=== PATIENT | female | born 1995 | race African-American/Black ===

== ENCOUNTER 2018-03-09 18:15 | Emergency (ER) | payer OTHER ==
[2018-03-09 18:24] VITALS: BP 119/72; PULSE 98; TEMP 98.1; BMI 55.7
--- NOTE | 2018-03-09 18:35 | PDOC ---
History of Present Illness - General Chief Complaint: Pain, Acute Stated Complaint: PAIN Time Seen by Provider: 03/09/18 18:29 History Source: Patient Exam Limitations: No Limitations - History of Present Illness Initial Comments: This is a 22 YOF with h/o morbid obesity and chronic sleep difficulties who p/w constant sharp 7/10 non-radiating RLQ abdominal pain, nausea, and five episodes NBNB vomiting since this morning. She had [employer] last night. Her last PO intake was about 90 minutes [employer] and was a munguia egg and cheese biscuit, which has not changed her pain level since then. She denies fever, chills, diarrhea, constipation, black/bloody stool, dysuria, strange colors/smells to the urine, vaginal bleeding or discharge, back pain, chest pain, SOB, dizziness, DUDLEY, or any other recent symptoms. She had this pain one time before, about 2 months ago , and was seen in the [facility] ED at that time. She recalls that they did blood and urine tests and found her white blood cell count to be high, but they did not do an ultrasound or any further testing, and sent her home per her report. Past History - Past Medical History Allergies/Adverse Reactions: Allergies Allergy/AdvReac Type Severity Reaction Status Date / Time No Known Allergies Allergy Verified 03/09/18 18:22 Home Medications: Ambulatory Orders NK [No Known Home Medication] 03/09/18 Asthma: Yes CVA: No COPD: No - Immunization History Immunization Up to Date: Yes - Suicide/Smoking/Psychosocial Hx Smoking History: Never smoked Have you smoked in the past 12 months: No Information on smoking cessation initiated: No Hx Alcohol Use: No Drug/Substance Use Hx: No Substance Use Type: None Review of Systems - Review of Systems Able to Perform ROS?: Yes Constitutional: No: Chills, Fever, Unexplained wgt Loss HEENTM: No: Nose Congestion, Throat Pain Respiratory: No: Cough, Shortness of Breath Cardiac (ROS): No: Chest Pain, Palpitations ABD/GI: Yes: Nausea, Vomiting, Other (right upper abdominal pain). No: Constipated, Diarrhea : No: Burning, Dysuria Musculoskeletal: No: Back Pain, Neck Pain Integumentary: No: Bruising, Rash Neurological: No: Headache, Numbness, Tingling, Weakness, Dizziness Endocrine: No: Unexplained Weight Gain, Unexplained Weight Loss *Physical Exam - Vital Signs Last Vital Signs Temp Pulse Resp BP Pulse Ox 98.1 F 98 H 18 119/72 99 03/09/18 18:22 03/09/18 18:22 03/09/18 18:22 03/09/18 18:22 03/09/18 18:22 - Physical Exam General Appearance: Yes: Nourished, Appropriately Dressed, Obese, Other ( pleasant adult female answering questions appropriately and appears comfortable while sitting up, uncomfortable while changing positions for exam). No: Apparent Distress HEENT: positive: EOMI, RUDDY, Normal Voice, Hearing Grossly Normal. negative: Scleral Icterus (R), Scleral Icterus (L), Nasal Congestion Neck: positive: Trachea midline, Supple, Other (mild acanthosis nigricans). negative: Tender, Rigid Respiratory/Chest: positive: Lungs Clear, Normal Breath Sounds. negative: Respiratory Distress, Crackles, Rhonchi, Stridor, Wheezing Cardiovascular: positive: Regular Rhythm, Regular Rate. negative: Murmur Gastrointestinal/Abdominal: positive: Normal Bowel Sounds, Soft. negative: Tender, Organomegaly, Pulsatile Mass, Guarding Musculoskeletal: positive: Normal Inspection. negative: Decreased Range of Motion, Vertebral Tenderness Extremity: positive: Normal Capillary Refill, Normal Inspection, Normal Range of Motion. negative: Tender, Cyanosis Integumentary: positive: Normal Color, Dry, Warm. negative: Erythema, Rash, Bruising Neurologic: positive: recruiting consultant II-XII NML intact, Fully Oriented, Alert, Normal Mood/ Affect, Normal Response, Motor Strength 5/5 Heart Score/ECG Review #1 NSR, rate 73, normal axis and intervals, no ischemic changes ED Treatment Course - LABORATORY CBC & Chemistry Diagram: 03/09/18 20:10 03/09/18 20:12 Medical Decision Making - Medical Decision Making Adult female patient p/w RLQ pain, nausea, and vomiting. Initial Vital Signs Temp Pulse Resp BP Pulse Ox 98.1 F 98 H 18 119/72 99 03/09/18 18:22 03/09/18 18:22 03/09/18 18:22 03/09/18 18:22 03/09/18 18:22 Exam: Nontoxic appearing, RUQ ttp with +Joe's sign, no peritoneal signs, no CVA ttp. DDX IBNLT: UTI/pyelonephritis, renal colic, ovarian torsion, ovarian cyst, ectopic , PID/TOA, cervicitis, endometritis, ACS, AAA/AD, malignancy, hernia, cholecystitis, pancreatitis, gastritis, PUD, appendicitis, diverticulitis wwo abscess or perforation, colitis, regional ileitis (Crohns disease), SBO, bowel ischemia, bowel perforation, constipation, musculoskeletal , dysmenorrhea, endometriosis, fibroids, etc. W/U ordered: CBCD CMP Mg Phos Coags T&S RUQ US EKG CXR TX ordered: IVF, Ofirmev EKG: NSR, rate 73, normal axis and intervals, no ischemic changes. US: Slight coarse echotexture of liver, no gallstones, no e/o cholecystitis. Laboratory Tests 03/09/18 03/09/18 03/09/18 19:40 19:40 19:40 WBC Cancelled Corrected WBC (auto) Cancelled RBC Cancelled Hgb Cancelled Hct Cancelled MCV Cancelled MCH Cancelled MCHC Cancelled RDW Cancelled Plt Count Cancelled MPV Cancelled Absolute Neuts (auto) Cancelled Absolute Lymphs (auto) Cancelled Absolute Monos (auto) Cancelled Absolute Eos (auto) Cancelled Absolute Basos (auto) Cancelled Add Manual Diff Cancelled Neutrophils % Cancelled Lymphocytes % Cancelled Monocytes % Cancelled Eosinophils % Cancelled Basophils % Cancelled Nucleated RBC % Cancelled Platelet Estimate Cancelled Platelet Comment Cancelled Normal RBC Morphology Cancelled PT with INR Cancelled INR Cancelled Sodium Cancelled Potassium Cancelled Chloride Cancelled Carbon Dioxide Cancelled Anion Gap Cancelled BUN Cancelled Creatinine Cancelled Creat Clearance w eGFR Cancelled Random Glucose Cancelled Calcium Cancelled Phosphorus Cancelled Magnesium Cancelled Total Bilirubin Cancelled AST Cancelled ALT Cancelled Alkaline Phosphatase Cancelled Total Protein Cancelled Albumin Cancelled Lipase Cancelled Urine Color Urine Appearance Urine pH Ur Specific [place] Urine Protein Urine Glucose (UA) Urine Ketones Urine Blood Urine Nitrite Urine Bilirubin Urine Urobilinogen Ur Leukocyte Esterase Urine WBC (Auto) Urine RBC (Auto) Ur Epithelial Cells Urine Bacteria Urine Mucus 03/09/18 03/09/18 03/09/18 19:51 20:10 20:10 WBC 14.3 H Corrected WBC (auto) RBC 4.69 Hgb 13.1 Hct 37.8 MCV 80.6 MCH 27.9 MCHC 34.6 RDW 13.4 Plt Count 278 MPV 8.5 Absolute Neuts (auto) Absolute Lymphs (auto) Absolute Monos (auto) Absolute Eos (auto) Absolute Basos (auto) Add Manual Diff Neutrophils % 53.4 D Lymphocytes % 37.0 D Monocytes % 7.9 Eosinophils % 1.3 Basophils % 0.4 Nucleated RBC % Platelet Estimate Platelet Comment Normal RBC Morphology PT with INR 11.80 INR 1.04 Sodium Potassium Chloride Carbon Dioxide Anion Gap BUN Creatinine Creat Clearance w eGFR Random Glucose Calcium Phosphorus Magnesium Total Bilirubin AST ALT Alkaline Phosphatase Total Protein Albumin Lipase Urine Color Yellow Urine Appearance Slcloudy Urine pH 6.0 Ur Specific [place] 1.031 Urine Protein 1+ H Urine Glucose (UA) Negative Urine Ketones Negative Urine Blood Negative Urine Nitrite Negative Urine Bilirubin Negative Urine Urobilinogen 2.0 H Ur Leukocyte Esterase Negative Urine WBC (Auto) 5 Urine RBC (Auto) 1 Ur Epithelial Cells Moderate Urine Bacteria Rare Urine Mucus Few 03/09/18 20:12 WBC Corrected WBC (auto) RBC Hgb Hct MCV MCH MCHC RDW Plt Count MPV Absolute Neuts (auto) Absolute Lymphs (auto) Absolute Monos (auto) Absolute Eos (auto) Absolute Basos (auto) Add Manual Diff Neutrophils % Lymphocytes % Monocytes % Eosinophils % Basophils % Nucleated RBC % Platelet Estimate Platelet Comment Normal RBC Morphology PT with INR INR Sodium 141 Potassium 4.1 Chloride 109 H Carbon Dioxide 28 Anion Gap 4 L BUN 10 Creatinine 1.0 Creat Clearance w eGFR > 60 Random Glucose 83 Calcium 8.4 L Phosphorus 4.1 Magnesium 2.1 Total Bilirubin 0.3 D AST 18 ALT 26 Alkaline Phosphatase 87 Total Protein 7.1 Albumin 3.4 Lipase 67 L Urine Color Urine Appearance Urine pH Ur Specific [place] Urine Protein Urine Glucose (UA) Urine Ketones Urine Blood Urine Nitrite Urine Bilirubin Urine Urobilinogen Ur Leukocyte Esterase Urine WBC (Auto) Urine RBC (Auto) Ur Epithelial Cells Urine Bacteria Urine Mucus Reassessment: repeat abdominal exam is benign, patient wants to go home. Vital Signs Temperature 98.1 F 03/09/18 18:22 Pulse Rate 98 H 03/09/18 18:22 Respiratory Rate 18 03/09/18 18:22 Blood Pressure 119/72 03/09/18 18:22 O2 Sat by Pulse Oximetry (%) 99 03/09/18 18:22 The patient has gotten significant relief of symptoms with ED medications. Workup is not concerning for emergency-level pathology at this time. The patient is appropriate for discharge with close outpatient follow up. The patient is comfortable with this plan and will follow up with her PCP in 1- 3 days. She will take Motrin and/or Tylenol for pain. Return precautions are discussed and they will come back to the ER if necessary. *DC/Admit/Observation/Transfer Diagnosis at time of Disposition: Abdominal pain Qualifiers: Abdominal location: unspecified location Qualified Code(s): R10.9 - Unspecified abdominal pain Nausea and vomiting Qualifiers: Vomiting type: unspecified Vomiting Intractability: unspecified Qualified Code( s): R11.2 - Nausea with vomiting, unspecified Leukocytosis Qualifiers: Leukocytosis type: unspecified Qualified Code(s): D72.829 - Elevated white blood cell count, unspecified - Discharge Dispostion Disposition: HOME Condition at time of disposition: Stable Decision to Admit order: No - Referrals - Patient Instructions Additional Instructions: You were seen in the ER for abdominal pain. We did an exam, laboratory work on your blood and urine, and an ultrasound, and we did not find any signs of an emergency. We did find a mildly elevated white blood cell count, which can be caused by many things including stress response to pain and vomiting, or infection (which we do not believe you have). Your pain improved with the medications we gave you here in the ER. After our assessment, we believe you are not having a medical emergency and you are safe to go home. Please take over -the-counter pain relievers like naproxen (Aleve) or ibuprofen (Motrin) or Tylenol. Follow up with your regular doctor(s) in the next 1-3 days. Call their clinic [facility], tell them you were seen in the ER, and tell them you need an appointment. Talk about your elevated white blood cell count and have your laboratory work repeated. Please come back to the ER at any time, 24 hours a day , for any new or worsening symptoms, like worsening pelvic pain, discharge, high fever, or other symptoms. If you are having severe or life threatening symptoms, or symptoms that make it unsafe to drive or have someone drive you, please call 911. - Post Discharge Activity
[2018-03-09] MEDS ORDERED: ACETAMINOPHEN 1000 MG/100 ML VIAL (NON FORMULARY) IVPB ONE (18:47)
[2018-03-09] MEDS ORDERED: SODIUM CHLORIDE 0.9% 500 ML INFUS.BAG IV ONE (18:48)
--- NOTE | 2018-03-09 19:38 | PDOC ---
Attending Attestation - Resident Resident Name: LuisCassidy - ED Attending Attestation I have performed the following: I have examined & evaluated the patient, The case was reviewed & discussed with the resident, I agree w/resident's findings & plan, Exceptions are as noted - HPI HPI: 03/09/18 19:32 morbidly obese 22 yo female p/w RUQ pain with nausea and vomiting - Physicial Exam PE: 03/09/18 19:42 obese 22 yo female head ncat neck supple,no jvd lungs cta b/l cvs [id number] abd protuberant, ruq tenderness ext no erythema,no clubbing musculoskeletal - no cva tenderness neuro axox3,no gross focal neuro deficits psych appropriate - Medical Decision Making 03/09/18 19:45 diff diag includes cholecystitis,gastritis labs,abd ultrasound ordered 03/09/18 21:29 -the pt approached me and states that she needs and wants to leave now -gallbladder ultrasound is normal -she states her nausea resolved
[2018-03-09] MEDS ORDERED: ACETAMINOPHEN INJECTION 100 ML IVPB ONE (19:46)
[2018-03-09 20:01] LABS: URINE APPEARANCE SLCLOUDY; URINE BILIRUBIN NEGATIVE (<2.0 mg/dL); URINE BLOOD NEGATIVE (NEGATIVE); URINE COLOR YELLOW; URINE GLUCOSE (UA) NEGATIVE (NEGATIVE); URINE KETONE NEGATIVE (NEGATIVE); URINE LEUK ESTERASE NEGATIVE (NEGATIVE); URINE NITRITE NEGATIVE (NEGATIVE)
[2018-03-09 20:03] LABS: URINE PROTEIN 1+ (NEGATIVE)
[2018-03-09 20:05] LABS: EPI CELLS MODERATE /HPF (FEW); URINE BACTERIA RARE /hpf (NONE SEEN); URINE MUCUS FEW
[2018-03-09 20:30] LABS: BASO % 0.4 % (0-2.0); EOS % 1.3 % (0-4.5); HEMATOCRIT 37.8 % (32.4-45.2); HEMOGLOBIN 13.1 GM/dL (10.7-15.3); MCH 27.9 pg (25.7-33.7); MCHC 34.6 g/dl (32.0-36.0); MEAN CELL VOLUME 80.6 fl (80-96); MEAN PLT VOLUME 8.5 fl (7.5-11.1); MONO % 7.9 % (3.8-10.2); NEUT % 53.4 % (42.8-82.8); PLATELET COUNT 278 K/MM3 (134-434); RBC 4.69 M/mm3 (3.60-5.2); RDW 13.4 % (11.6-15.6); WHITE BLOOD COUNT 14.3 K/mm3 (4.0-10.0)
[2018-03-09 20:36] LABS: INR 1.04 (0.82-1.09); PROTHROMBIN TIME (PATIENT) 11.8 SEC (9.7-13.0)
[2018-03-09 20:44] LABS: ALBUMIN 3.4 g/dl (3.4-5.0); ALK PHOS 87 U/L (45-117); ANION GAP 4 (8-16); BILIRUBIN,TOTAL 0.3 mg/dL (0.2-1.0); BLOOD UREA NITROGEN 10 mg/dL (7-18); CALCIUM 8.4 mg/dL (8.5-10.1); CHLORIDE 109 mmol/L (98-107); CO2 28 mmol/L (21-32); GLUCOSE,RANDOM 83 mg/dL (74-106); LIPASE 67 U/L (73-393); MAGNESIUM 2.1 mg/dL (1.8-2.4); PHOSPHOROUS 4.1 mg/dL (2.5-4.9); POTASSIUM 4.1 mmol/L (3.5-5.1); SGOT/AST 18 U/L (15-37); SGPT/ALT 26 U/L (12-78); SODIUM 141 mmol/L (136-145); TOT PROT 7.1 g/dl (6.4-8.2)
--- NOTE | 2018-03-10 12:17 | EKG ---
Test Reason : Blood Pressure : / mmHG Vent. Rate : 073 BPM Atrial Rate : 073 BPM P-R Int : 154 ms QRS Dur : 086 ms QT Int : 368 ms P-R-T Axes : 051 024 036 degrees QTc Int : 405 ms NORMAL SINUS RHYTHM WITH SINUS ARRHYTHMIA NORMAL ECG NO PREVIOUS ECGS AVAILABLE Confirmed by SHER RAMOS MD ([id number]) on 03/10/2018 12:16:42 PM Referred By: Confirmed By:SHER RAMOS MD
== END 2018-03-09 21:59 | disposition home or self-care (01) ==
LOC: JER 18:15
PROC: 3E033NZ Introduction of Analgesics, Hypnotics, Sedatives into Peripheral Vein, Percutaneous Approach (ICD-10-PCS; principal; 2018-03-09)
DX: R10.11 Right upper quadrant pain (principal); R11.2 Nausea with vomiting, unspecified; E66.01 Morbid (severe) obesity due to excess calories; Z68.43 Body mass index [BMI] 50.0-59.9, adult; D72.829 Elevated white blood cell count, unspecified; G47.9 Sleep disorder, unspecified
CPT/HCPCS: 36415; 76705-TC; 80053; 81003; 81015; 83690; 83735; 84100; 85025; 85610; 86850; 86900; 86901; 87086; 93005; 93010; 96374; 99283-25; J0131

== ENCOUNTER 2021-02-20 19:24 | Emergency (ER) | payer OTHER ==
[2021-02-20 19:50] VITALS: BP 148/90; PULSE 83; TEMP 97.2; BMI 55.2
[2021-02-20 21:25] LABS: BASO % 0.6 % (0-2.0); HEMATOCRIT 41.1 % (32.4-45.2); HEMOGLOBIN 13.7 GM/dL (10.7-15.3); LYMPH % 34.9 % (8-40); MCH 26.3 pg (25.7-33.7); MCHC 33.3 g/dl (32.0-36.0); MEAN CELL VOLUME 79.1 fl (80-96); MEAN PLT VOLUME 8.3 fl (7.5-11.1); MONO % 6.4 % (3.8-10.2); NEUT % 55.1 % (42.8-82.8); PLATELET COUNT 299 K/MM3 (134-434); RBC 5.19 M/mm3 (3.60-5.2); RDW 14.8 % (11.6-15.6); WHITE BLOOD COUNT 14.2 K/mm3 (4.0-10.0)
[2021-02-20 21:31] LABS: INR 0.98 (0.83-1.09); PROTHROMBIN TIME (PATIENT) 12.1 SEC (9.7-13.0)
[2021-02-20 21:34] LABS: ACTIVATED PTT 27.2 SECONDS (25.2-36.5)
[2021-02-20 21:52] LABS: CHLORIDE 105 mmol/L (98-107); SODIUM 139 mmol/L (136-145)
[2021-02-20 21:54] LABS: ALBUMIN 3.3 g/dl (3.4-5.0); ANION GAP 5 MMOL/L (8-16); BLOOD UREA NITROGEN 9.1 mg/dL (7-18); CALCIUM 9.1 mg/dL (8.5-10.1); CO2 29 mmol/L (21-32); GLUCOSE,RANDOM 104 mg/dL (74-106); MAGNESIUM 2.1 mg/dL (1.8-2.4)
[2021-02-20 21:57] LABS: CREATININE 0.9 mg/dL (0.55-1.3); SGOT/AST 19 U/L (15-37); SGPT/ALT 38 U/L (13-61)
[2021-02-20 21:59] LABS: BILIRUBIN,TOTAL 0.2 mg/dL (0.2-1)
[2021-02-20 22:00] LABS: ALK PHOS 91 U/L (45-117)
== END 2021-02-21 01:48 | disposition home or self-care (01) ==
LOC: JERFT 19:24
DX: M54.5 Low back pain (principal)
CPT/HCPCS: 36415; 71046-TC-FY; 80053; 82550; 83735; 84484; 85025; 85610; 85730; 93005; 93010; 99285-25

== ENCOUNTER 2022-07-22 15:13 | Emergency (ER) | payer OTHER ==
[2022-07-22 15:36] VITALS: BP 110/68; PULSE 67; RESP 16; TEMP 98.7; BMI 66.3
[2022-07-22] MEDS ORDERED: SODIUM CHLORIDE 0.9% 500 ML INFUS.BAG IV ONE (16:59)
[2022-07-22 17:35] LABS: BASO % 0.3 % (0-2.0); EOS % 2.4 % (0-4.5); HEMATOCRIT 37.1 % (32.4-45.2); HEMOGLOBIN 12.2 GM/dL (10.7-15.3); LYMPH % 28.4 % (8-40); MCH 26.5 pg (25.7-33.7); MCHC 32.8 g/dl (32.0-36.0); MEAN PLT VOLUME 8.1 fl (7.5-11.1); MONO % 5.9 % (3.8-10.2); PLATELET COUNT 305 10^3/uL (134-434); RBC 4.59 M/mm3 (3.60-5.2); RDW 13.5 % (11.6-15.6)
[2022-07-22 18:07] LABS: CALCIUM 9.3 mg/dL (8.5-10.1)
[2022-07-22 18:08] LABS: ALBUMIN 3.3 g/dl (3.4-5.0); BLOOD UREA NITROGEN 11.1 mg/dL (7-18)
[2022-07-22 18:11] LABS: CREATININE 0.9 mg/dL (0.55-1.3)
[2022-07-22 18:12] LABS: BILIRUBIN,TOTAL 0.4 mg/dL (0.2-1)
[2022-07-22] MEDS ORDERED: KETOROLAC TROMETHAMINE 30 MG/1 ML VIAL IVPUSH ONE (19:06)
[2022-07-22] MEDS ORDERED: KETOROLAC TROMETHAMINE 30 MG/1 ML VIAL ONE (19:08)
[2022-07-22 19:16] LABS: EPI CELLS 8 /uL (0-25.1); HYALINE CASTS 3 /uL (0-3.1); PH,URINE 5.5 (5.0-8.0); URINE APPEARANCE TURBID; URINE BILIRUBIN 1+ (NEGATIVE); URINE COLOR RED; URINE GLUCOSE (UA) NEGATIVE (NEGATIVE); URINE KETONE NEGATIVE (NEGATIVE); URINE LEUK ESTERASE 2+ (NEGATIVE); URINE NITRITE POSITIVE (NEGATIVE); URINE PROTEIN 2+ (NEGATIVE); URINE RBC 45678 /uL (0-23.9); URINE UROBILINOGEN 0.2 mg/dL (0.2-1.0); URINE WBC 34 /uL (0-25.8)
[2022-07-22] MEDS ORDERED: CEFTRIAXONE 1 GM in DEXTROSE 5%-WATER - 100 ML IVPB ONE (19:31)
[2022-07-22 19:44] LABS: URINE BACTERIA 0 /uL (0-1359)
[2022-07-22] MEDS ORDERED: CEFTRIAXONE 1 GM/50 ML BAG ONE (19:50)
== END 2022-07-22 21:09 | disposition home or self-care (01) ==
LOC: JER 15:13 → JERFT 15:13
PROC: 3E0333Z Introduction of Anti-inflammatory into Peripheral Vein, Percutaneous Approach (ICD-10-PCS; principal; 2022-07-22)
PROC: 3E03329 Introduction of Other Anti-infective into Peripheral Vein, Percutaneous Approach (ICD-10-PCS; 2022-07-22)
DX: N93.9 Abnormal uterine and vaginal bleeding, unspecified (principal); N39.0 Urinary tract infection, site not specified; R10.30 Lower abdominal pain, unspecified
CPT/HCPCS: 36415; 74177-TC; 76830-TC; 76856-TC; 80053; 81003; 84703; 85025; 86850; 86900; 86901; 87086; 99285-25; Q9967

== ENCOUNTER 2023-04-08 17:37 | Emergency (ER) | payer OTHER ==
[2023-04-08 17:49] VITALS: BP 155/89; PULSE 104; RESP 20; TEMP 98.8; BMI 57.6
== END 2023-04-08 20:14 | disposition home or self-care (01) ==
LOC: JER 17:37
DX: R00.0 Tachycardia, unspecified (principal); I10 Essential (primary) hypertension
CPT/HCPCS: 84703; 93005; 93010; 99284-25

== ENCOUNTER 2023-05-23 23:40 | Emergency (ER) | payer OTHER ==
[2023-05-23 23:44] VITALS: BP 126/77; PULSE 90; RESP 18; TEMP 98.4; BMI 56.7
[2023-05-24] MEDS ORDERED: SODIUM CHLORIDE 0.9% 1000 ML INFUS.BAG IV ONE (00:49)
[2023-05-24] MEDS ORDERED: ACETAMINOPHEN 1000 MG/100 ML BAG IVPB ONE (00:49)
[2023-05-24] MEDS ORDERED: METOCLOPRAMIDE HCL INJECTION 10 MG/2 ML VIAL IVPUSH ONE (00:49)
[2023-05-24] MEDS ORDERED: DEXAMETHASONE SOD PHOSPHATE 10 MG/1 ML VIAL IVPUSH ONE (00:49)
[2023-05-24] MEDS ORDERED: METOCLOPRAMIDE HCL INJECTION 10 MG/2 ML VIAL ONE (00:56)
[2023-05-24] MEDS ORDERED: DEXAMETHASONE SOD PHOSPHATE 10 MG/1 ML VIAL ONE (00:57)
[2023-05-24] MEDS ORDERED: ACETAMINOPHEN INJECTION 100 ML IVPB ONE (00:57)
[2023-05-24 02:21] LABS: EPI CELLS 32 /uL (0-25.1); HYALINE CASTS 0 /uL (0-3.1); URINE APPEARANCE CLEAR; URINE BACTERIA 683 /uL (0-1359); URINE BILIRUBIN NEGATIVE (NEGATIVE); URINE COLOR YELLOW; URINE GLUCOSE (UA) NEGATIVE (NEGATIVE); URINE KETONE NEGATIVE (NEGATIVE); URINE LEUK ESTERASE NEGATIVE (NEGATIVE); URINE NITRITE NEGATIVE (NEGATIVE); URINE PROTEIN NEGATIVE (NEGATIVE); URINE RBC 13 /uL (0-23.9); URINE WBC 7 /uL (0-25.8)
[2023-05-24 02:34] LABS: HCG,QUALITATIVE URINE Negative
[2023-05-24 04:48] LABS: YEAST FEW (NEGATIVE)
[2023-05-24 20:04] LABS: BASO % 0.7 % (0-2.0); EOS % 2.8 % (0-4.5); HEMATOCRIT 39.5 % (32.4-45.2); HEMOGLOBIN 12.5 GM/dL (10.7-15.3); LYMPH % 42.3 % (8-40); MCH 25.7 pg (25.7-33.7); MCHC 31.6 g/dl (32.0-36.0); MEAN CELL VOLUME 81.5 fl (80-96); MEAN PLT VOLUME 9.4 fl (7.5-11.1); MONO % 5.4 % (3.8-10.2); NEUT % 48.8 % (42.8-82.8); PLATELET COUNT 292 10^3/uL (134-434); RBC 4.85 M/mm3 (3.60-5.2); RDW 14.6 % (11.6-15.6); WHITE BLOOD COUNT 15.8 K/mm3 (4.0-10.0)
[2023-05-24 20:05] LABS: POTASSIUM 4.1 mmol/L (3.5-5.1)
[2023-05-24 20:07] LABS: CALCIUM 8.6 mg/dL (8.5-10.1)
[2023-05-24 20:08] LABS: ALBUMIN 3.2 g/dl (3.4-5.0); BLOOD UREA NITROGEN 11.2 mg/dL (7-18)
[2023-05-24 20:12] LABS: BILIRUBIN,TOTAL 0.1 mg/dL (0.2-1); TOT PROT 6.6 g/dl (6.4-8.2)
== END 2023-05-24 04:00 | disposition home or self-care (01) ==
LOC: JER 23:40
PROC: 3E033NZ Introduction of Analgesics, Hypnotics, Sedatives into Peripheral Vein, Percutaneous Approach (ICD-10-PCS; principal; 2023-05-24)
PROC: 3E033GC Introduction of Other Therapeutic Substance into Peripheral Vein, Percutaneous Approach (ICD-10-PCS; 2023-05-24)
PROC: 3E033GC Introduction of Other Therapeutic Substance into Peripheral Vein, Percutaneous Approach (ICD-10-PCS; 2023-05-24)
DX: R51.9 Headache, unspecified (principal); H53.149 Visual discomfort, unspecified; H57.12 Ocular pain, left eye
CPT/HCPCS: 36415; 80053; 81003; 84703; 85025; 99284-25; J1100

== ENCOUNTER 2024-01-22 00:31 | Emergency (ER) | payer OTHER ==
[2024-01-22 00:40] VITALS: BP 142/92; PULSE 90; RESP 20; TEMP 98.4; BMI 54.5
[2024-01-22 01:36] LABS: BASO % 0.5 % (0-2.0); EOS % 2.5 % (0-4.5); HEMATOCRIT 40.8 % (32.4-45.2); HEMOGLOBIN 13.4 GM/dL (10.7-15.3); LYMPH % 39.2 % (8-40); MCH 26.2 pg (25.7-33.7); MCHC 32.8 g/dl (32.0-36.0); MEAN CELL VOLUME 79.7 fl (80-96); MEAN PLT VOLUME 8.1 fl (7.5-11.1); MONO % 6.8 % (3.8-10.2); PLATELET COUNT 306 10^3/uL (134-434); RBC 5.13 M/mm3 (3.60-5.2); RDW 13.7 % (11.6-15.6); WHITE BLOOD COUNT 16.5 K/mm3 (4.0-10.0)
[2024-01-22 01:42] LABS: INR 1.25 (0.83-1.09); PROTHROMBIN TIME (PATIENT) 14.5 SEC (9.7-13.0)
[2024-01-22 01:44] LABS: CHLORIDE 107 mmol/L (98-107); POTASSIUM 3.9 mmol/L (3.5-5.1); SODIUM 142 mmol/L (136-145)
[2024-01-22 01:47] LABS: ALBUMIN 3.6 g/dl (3.4-5.0); ANION GAP 5 mmol/L (4-13); BLOOD UREA NITROGEN 9.5 mg/dL (7-18); CALCIUM 9.1 mg/dL (8.5-10.1); CO2 31 mmol/L (21-32); GLUCOSE,RANDOM 90 mg/dL (74-106)
[2024-01-22 01:50] LABS: CREATININE 0.8 mg/dL (0.55-1.3); SGOT/AST 15 U/L (15-37); SGPT/ALT 29 U/L (13-61)
[2024-01-22 01:52] LABS: BILIRUBIN,TOTAL 0.5 mg/dL (0.2-1); TOT PROT 7.5 g/dl (6.4-8.2)
[2024-01-22 01:53] LABS: ALK PHOS 88 U/L (45-117)
[2024-01-22] MEDS ORDERED: KETOROLAC TROMETHAMINE 30 MG/1 ML VIAL ONE (02:34)
[2024-01-22] MEDS: KETOROLAC TROMETHAMINE 30 MG/1 ML VIAL IVPUSH ONE (02:39)
== END 2024-01-22 03:08 | disposition home or self-care (01) ==
LOC: JER 00:31
PROC: 3E0333Z Introduction of Anti-inflammatory into Peripheral Vein, Percutaneous Approach (ICD-10-PCS; principal; 2024-01-22)
DX: N94.6 Dysmenorrhea, unspecified (principal); R10.32 Left lower quadrant pain
CPT/HCPCS: 36415; 76830-TC; 80053; 84702; 84703; 85025; 85610; 85730; 86850; 86900; 86901; 99284-25

== ENCOUNTER 2024-04-06 22:25 | Emergency (ER) | payer OTHER ==
[2024-04-06 22:38] VITALS: BP 129/81; PULSE 107; RESP 20; TEMP 98.5; BMI 53.6
== END 2024-04-06 23:55 | disposition home or self-care (01) ==
LOC: JER 22:25
DX: H43.393 Other vitreous opacities, bilateral (principal); R51.9 Headache, unspecified; H53.143 Visual discomfort, bilateral
CPT/HCPCS: 82962; 93005; 93010; 99283-25

== ENCOUNTER 2024-05-25 22:42 | Emergency (ER) | payer OTHER ==
[2024-05-25 22:46] VITALS: BP 127/84; PULSE 86; RESP 20; TEMP 99.1; BMI 53.0
[2024-05-26] MEDS ORDERED: ACETAMINOPHEN INJECTION 100 ML IVPB ONE (01:10)
[2024-05-26] MEDS ORDERED: METOCLOPRAMIDE HCL INJECTION 10 MG/2 ML VIAL ONE (01:10)
[2024-05-26] MEDS: METOCLOPRAMIDE HCL INJECTION 10 MG/2 ML VIAL IVPUSH ONE (01:31)
[2024-05-26] MEDS: SODIUM CHLORIDE 1,000 ML IV STA (01:31)
[2024-05-26] MEDS: ACETAMINOPHEN 1000 MG/100 ML BAG IVPB ONE (01:31)
== END 2024-05-26 03:24 | disposition home or self-care (01) ==
LOC: JER 22:42
PROC: 3E033NZ Introduction of Analgesics, Hypnotics, Sedatives into Peripheral Vein, Percutaneous Approach (ICD-10-PCS; principal; 2024-05-26)
PROC: 3E033GC Introduction of Other Therapeutic Substance into Peripheral Vein, Percutaneous Approach (ICD-10-PCS; 2024-05-26)
PROC: 3E0337Z Introduction of Electrolytic and Water Balance Substance into Peripheral Vein, Percutaneous Approach (ICD-10-PCS; 2024-05-26)
DX: R51.9 Headache, unspecified (principal); R06.02 Shortness of breath; Z20.822 Contact with and (suspected) exposure to COVID-19
CPT/HCPCS: 0241U-QW; 84703; 93005; 93010; 99284-25; J0131

== ENCOUNTER 2025-01-04 02:28 | Emergency (ER) | payer SELFPAY ==
[2025-01-04 02:37] VITALS: BP 144/96; PULSE 87; RESP 18; TEMP 98.4; BMI 52.3
[2025-01-04 05:43] LABS: HIV INTERPRETATION NEGATIVE (NEGATIVE)
== END 2025-01-04 03:31 | disposition home or self-care (01) ==
LOC: JER 02:28
DX: R00.2 Palpitations (principal)
CPT/HCPCS: 36415; 86803; 87389; 93005; 93010; 99284-25